=== PATIENT | male | born 1955 | race Caucasian/White ===

== ENCOUNTER 2017-03-24 15:41 | Emergency (ER) | payer BC ==
[~2017-03-24] VITALS: Ht 185.4 cm; Wt 93.0 kg
[~2017-03-24 15:41] MED LIST: BACLOFEN10 MG PO; FINASTERIDE5 MG PO; FLOMAX0.4 M1 PO; NAPROSYN500 MG PO; OMEPRAZOLE20 M2 PO
[2017-03-24] MEDS ORDERED: DOXYCYCL HYC100 MG PO (16:07)
[2017-03-24 16:10] VITALS: BP 136/80
== END 2017-03-24 16:10 | disposition home or self-care (01) | DRG 603 ==
LOC: ED 15:41
DX: L02.426 Furuncle of left lower limb (principal)

== ENCOUNTER 2024-03-07 11:26 | Emergency (ER) | payer MEDICARE ==
[2024-03-07] VITALS (7 sets, daily range): BP systolic 122–163; BP diastolic 53–66
[~2024-03-07] VITALS: Ht 185.4 cm; Wt 100.6 kg
[~2024-03-07 11:26] MED LIST changes: +CEPHALEXIN500 M1 PO; +DOXYCYCL HYC100 MG PO
[2024-03-07] MEDS ORDERED: KETOROLAC TROMETHAMINE 30 MG/ML SDV IM ONE (12:30)
[2024-03-07] MEDS ORDERED: predniSONE 20 MG/TAB PO ONE (12:40)
[2024-03-07] MEDS ORDERED: ORPHENADRINE CITRATE 30 MG/ML AMP IM ONE (12:40)
[2024-03-07] MEDS ORDERED: diazePAM 10 MG/2 ML VIAL IM ONE (12:45)
[2024-03-07] MEDS ORDERED: DIAZEPAM5 MG PO (14:54)
[2024-03-07] MEDS ORDERED: PREDNISONE10 MG PO (14:54)
[2024-03-07] MEDS ORDERED: NAPROXEN500 MG PO (14:54)
== END 2024-03-07 15:03 | disposition home or self-care (01) ==
LOC: ED 11:26
DX: S39.012A Strain of muscle, fascia and tendon of lower back, initial encounter (principal); X50.3XXA Overexertion from repetitive movements, initial encounter; Y93.79 Activity, other specified sports and athletics; Z96.653 Presence of artificial knee joint, bilateral